=== PATIENT | male | born 1970 | race Caucasian/White ===

== ENCOUNTER 2017-03-24 01:53 | Inpatient (IN) ==
[2017-03-24] MEDS ORDERED: ASPIRIN PO STA (02:00)
[2017-03-24] MEDS ORDERED: MORPHINE IV ONE (02:27)
[2017-03-24] MEDS ORDERED: ZOFRAN IV ONE (02:27)
[2017-03-24] MEDS ORDERED: LABETALOL IV ONE (02:28)
[2017-03-24 03:01] LABS: BASO% 0.3 % (0.0-0.8); EOS# 0.19 X1000 (0.0-0.7); EOS% 1.7 % (0.0-10.0); HEMATOCRIT 40.5 % (42.0-52.0); HEMOGLOBIN 12.5 g/dL (14.0-18.0); IMM GRAN# 0.02 X1000 (0.0-0.04); IMM GRAN% 0.2 % (0.0-0.5); LYMPH# 1.94 X1000 (1.2-3.4); MANUAL DIFF NEEDED? NO; MCH 22.6 PG (27-31); MCHC 30.9 g/dL (33-37); MCV 73.1 FL (81-99); MONO# 0.78 X1000 (0.11-0.59); MONO% 6.8 % (1.7-9.3); MPV 9.5 FL (7.4-10.4); PLT 360 X1000 (130-400); RBC 5.54 XMIL (4.7-6.1)
[2017-03-24 03:06] LABS: AGAP 15; ALBUMIN 4.4 g/dL (3.5-5.0); ALKALINE PHOSPHATASE 109 U/L (32-122); BUN 12 mg/dL (8-22); CALCIUM 8.8 mg/dL (8.8-10.2); CHLORIDE 98 mmol/L (98-107); COSMO 287; GOT 24 U/L (10-34); GPT 31 U/L (10-44); MAGNESIUM 1.9 mg/dL (1.5-2.7); SODIUM 137 mmol/L (136-145); TCO2 24 mmol/L (25-35); TOTAL BILIRUBIN 0.61 mg/dL (0.20-1.00)
[2017-03-24 03:09] LABS: CK PROFILE 317 U/L (24-204)
[2017-03-24 03:24] LABS: INR 1.02; PROTIME 10.7 Seconds (9.2-11.7); PTT 25.8 Seconds (22.0-36.0)
[2017-03-24 03:51] LABS: CK INDEX 2.7 (0.0-2.5); CK-MB 8.56 ng/mL (0.0-5.0)
[2017-03-24] MEDS ORDERED: LASIX IV ONE (03:57)
[2017-03-24] MEDS ORDERED: NITROGLYCERIN TOP ONE (04:03)
--- NOTE | 2017-03-24 04:09 | PROVIDER DOCUMENTATION ---
This chart was entered by Galilea Menendez Scribe, acting as scribe for Shawn Valadez MD. HPI-Chest Pain - General Stated Complaint: CHEST PAIN/SOB Time Seen by Provider: 03/24/17 02:16 Source: patient Allergies/Adverse Reactions: Patient Allergies Allergy/AdvReac Type Severity Reaction Status Date / Time No Known Allergies Allergy Verified 03/24/17 02:53 Home Medications: Home Medication List Medication Instructions Recorded Confirmed Last Taken Type Metformin [Glucophage] 1,000 mg PO BID 04/08/14 03/24/17 03/24/17 History Aspirin [Aspir-Low] 81 mg PO DAILY 07/16/16 03/24/17 03/24/17 History Atorvastatin Calcium [Lipitor] 20 mg PO QHS 03/24/17 03/24/17 03/24/17 History Canagliflozin [Invokana] 100 mg PO DAILY 03/24/17 03/24/17 03/24/17 History Cyclobenzaprine [Flexeril] 10 mg PO TID PRN 03/24/17 03/24/17 03/24/17 History Glipizide 10 mg PO BID 03/24/17 03/24/17 03/24/17 History Losartan/Hydrochlorothiazide 1 each PO DAILY 03/24/17 03/24/17 03/24/17 History [Losartan-Hctz 100-25 mg Tab] Naproxen/Esomeprazole Mag [Vimovo 1 each PO BID PRN 03/24/17 03/24/17 03/24/[address] 500-20 mg Tablet] - History of Present Illness-CP Nature of Presenting Problem: 46 Y/O M presents to ER with the complain of chest pain/SOB last night. pt states that he was in his bed and suddenly started to have difficulty breathing.pt states that he has neck pain and shoulder pain. pt states that he was feeling wheezing and took aspirin at home and that helped him with his wheezing. Location: reports: central Chest Pain Radiation: reports: neck, shoulders Quality of Pain: reports: pressure Severity in ED: moderate Onset/Duration: last night Timing: still present Context/Activities at Onset: reports: none Associated Symptoms: reports: shortness of breath Aspirin Treatment Today: no aspirin today, provided at home, provided by ED Review of Systems - Adult - REVIEW OF SYSTEMS - ADULT Constitutional: reports: no symptoms reported Eyes: reports: no symptoms reported Ears, Nose, Mouth & Throat: reports: no symptoms reported Cardiovascular: reports: chest pain. denies: irregular heart rate, palpitations Respiratory: reports: shortness of breath, wheezing. denies: cough Gastrointestinal: reports: no symptoms reported Genitourinary: reports: no symptoms reported Musculoskeletal: reports: no symptoms reported Integumentary: reports: no symptoms reported Neurological: reports: no symptoms reported Psychiatric: reports: no symptoms reported Endocrine: reports: no symptoms reported Hematologic/Lymphatic: reports: no symptoms reported Allergic/Immunologic: reports: no symptoms reported All Other Systems: Reviewed and Negative Past History - Adult - PAST MEDICAL HISTORY-ADULT Review of Records: reports: Old Records Reviewed, Nursing Assessment Review Major Childhood Illnesses: reports: denies history Cardiovascular: reports: HTN, hyperlipidemia Respiratory: reports: sleep apnea Gastrointestinal: reports: denies history Genitourinary: reports: denies history Musculoskeletal: reports: denies history Neurological: reports: denies history Psychiatric: reports: denies history Endocrine/Immune: reports: Diabetes Other Conditions: reports: other (hemachromatosis) - PRIOR SURGERIES/PROCEDURES Surgical/Procedure History: reports: appendectomy - IMMUNIZATION STATUS Childhood Immunizations: See Nurse Assessment Flu Vaccine: See Nurse Assessment - FAMILY HISTORY Family History: reviewed, not pertinent - SOCIAL HISTORY Substance Use: alcohol Physical Exam-General - PHYSICAL EXAM-ADULT Initial Vital Signs Reviewed: Yes - CONSTITUTIONAL General Appearance: appears well, alert - EYES Eyes: PERRL/EOMI, pink conjunctivae - HEAD, EARS, NOSE, MOUTH & THROAT HENMT: moist mucous membranes, normal ENT inspection, TMs normal - NECK Neck: non-tender, full range of motion, supple - RESPIRATORY Respiratory: chest non-tender, lungs clear, normal breath sounds - CARDIOVASCULAR Cardiovascular: no edema, no gallop, tachycardia. negative: diastolic murmur, systolic murmur - GASTROINTESTINAL (ABDOMEN) Abdominal Exam: normal bowel sounds, soft, tenderness (RUQ) - MUSCULOSKELETAL Back Exam: normal inspection, no CVA tenderness, no vertebral tenderness Extremity: normal range of motion, non-tender, normal gait, normal inspection - SKIN Integumentary: normal color, normal turgor, warm/dry - NEUROLOGIC Neurologic: grossly normal, no motor/sensory deficits - PSYCHIATRIC Psych/Mental Status: normal mood/affect, normal thought content, normal thought process, oriented x 3 Progress - PLAN OF CARE/RESULTS Progress/Plan/Lab Results: Vital Signs - 8 hr 03/24/17 02:14 Pulse Rate 119 H Respiratory Rate 22 Blood Pressure 167/120 O2 Sat by Pulse Oximetry 85 L Laboratory Results - last 24 hr 03/24/17 03/24/17 03/24/17 02:15 02:15 02:15 WBC 11.39 H RBC 5.54 Hgb 12.5 L Hct 40.5 L MCV 73.1 L MCH 22.6 L MCHC 30.9 L RDW Std Deviation 16.0 H Plt Count 360 MPV 9.5 Immature Gran % (Auto) 0.2 Neut % (Auto) 74.0 Lymph % (Auto) 17.0 L [place] % (Auto) 6.8 Eos % (Auto) 1.7 Baso % (Auto) 0.3 Immature Gran # (Auto) 0.02 Neut # (Auto) 8.43 H Lymph # (Auto) 1.94 [place] # (Auto) 0.78 H Eos # (Auto) 0.19 Baso # (Auto) 0.03 PT INR PTT (Actin FS) D-Dimer 1.85 H Sodium 137 Potassium 4.0 Chloride 98 Carbon Dioxide 24 L Anion Gap 15 BUN 12 Creatinine 1.1 Estimated GFR/1.73 m2 > 60 BUN/Creatinine Ratio 11 Glucose 337 H Calculated Osmolality 287 Calcium 8.8 Magnesium 1.9 Total Bilirubin 0.61 AST 24 ALT 31 Alkaline Phosphatase 109 Creatine Kinase 317 H Creatine Kinase Index 2.7 H CK-MB (CK-2) 8.56 H Troponin T Qln-A-Valkcdbojts Pept Total Protein 7.0 Albumin 4.4 Globulin 2.6 Albumin/Globulin Ratio 1.7 Lipase 03/24/17 03/24/17 03/24/17 02:15 02:15 02:15 WBC RBC Hgb Hct MCV MCH MCHC RDW Std Deviation Plt Count MPV Immature Gran % (Auto) Neut % (Auto) Lymph % (Auto) [place] % (Auto) Eos % (Auto) Baso % (Auto) Immature Gran # (Auto) Neut # (Auto) Lymph # (Auto) [place] # (Auto) Eos # (Auto) Baso # (Auto) PT 10.7 INR 1.02 PTT (Actin FS) 25.8 D-Dimer Sodium Potassium Chloride Carbon Dioxide Anion Gap BUN Creatinine Estimated GFR/1.73 m2 BUN/Creatinine Ratio Glucose Calculated Osmolality Calcium Magnesium Total Bilirubin AST ALT Alkaline Phosphatase Creatine Kinase Creatine Kinase Index CK-MB (CK-2) Troponin T 0.011 Lef-U-Wtbmvnaectp Pept 1674 H Total Protein Albumin Globulin Albumin/Globulin Ratio Lipase 03/24/17 02:15 WBC RBC Hgb Hct MCV MCH MCHC RDW Std Deviation Plt Count MPV Immature Gran % (Auto) Neut % (Auto) Lymph % (Auto) [place] % (Auto) Eos % (Auto) Baso % (Auto) Immature Gran # (Auto) Neut # (Auto) Lymph # (Auto) [place] # (Auto) Eos # (Auto) Baso # (Auto) PT INR PTT (Actin FS) D-Dimer Sodium Potassium Chloride Carbon Dioxide Anion Gap BUN Creatinine Estimated GFR/1.73 m2 BUN/Creatinine Ratio Glucose Calculated Osmolality Calcium Magnesium Total Bilirubin AST ALT Alkaline Phosphatase Creatine Kinase Creatine Kinase Index CK-MB (CK-2) Troponin T Mup-F-Qvypqultdqq Pept Total Protein Albumin Globulin Albumin/Globulin Ratio Lipase 10 L Orders Category Date Time Status Cardiac Monitoring DIRECTED Care 03/24/17 02:00 Active Oxygen Therapy- ED Nursing DIRECTED Care 03/24/17 02:00 Active Saline Loc NOW Care 03/24/17 02:00 Active CHEST-2 VIEWS [RAD] Stat Exams 03/24/17 02:[address] ANGIOGRM/PULMONARY ARTERIES [CT] Stat Exams 03/24/17 03:13 Taken CBC WITH ELECTRONIC DIFF [HEME] Stat Lab 03/24/17 02:15 Completed CK PROFILE [SP CHEM] Stat Lab 03/24/17 02:15 Completed COMPREHENSIVE METABOLIC PANEL [CHEM] Stat Lab 03/24/17 02:15 Completed D-DIMER [CHEM] Stat Lab 03/24/17 02:15 Completed LIPASE [CHEM] Stat Lab 03/24/17 02:15 Completed MAGNESIUM [CHEM] Stat Lab 03/24/17 02:15 Completed PRO B-NATRIURETIC PEPTIDE Stat Lab 03/24/17 02:15 Completed PROTIME WITH INR [COAG] Stat Lab 03/24/17 02:15 Completed PTT [COAG] Stat Lab 03/24/17 02:15 Completed TROPONIN T Stat Lab 03/24/17 02:15 Completed Aspirin Med 03/24/17 02:00 Discontinued 325 mg PO STAT STA Furosemide [Lasix] Med 03/24/17 03:57 Discontinued 40 mg IV NOW ONE Labetalol Med 03/24/17 02:28 Discontinued 100 mg IV NOW ONE Morphine Med 03/24/17 02:27 Discontinued 4 mg IV NOW ONE Nitroglycerin Med 03/24/17 04:03 Discontinued 1 inch TOP NOW ONE Ondansetron [Zofran] Med 03/24/17 02:27 Discontinued 4 mg IV NOW ONE EKG [EKG] Stat Ther 03/24/17 02:00 Ordered Result Diagrams: 03/24/17 02:15 03/24/17 02:15 - EKG 1 Time of EKG reading by physician:: 01:54 EKG Read and Signed by:: Shawn Valadez EKG Interpretation (*Must complete 3 of following elements*): Abnormal Rate: 118 Rhythm: sinus tachycardia woth occasional premature ventricular complexes Comments: abnormal ECG - XRAY 1 XRAY: Bilateral XRAY Study: Chest Impression: Abnormal XRAY Interpretation: cardiolmegaly by Jenni - CT/MRI 1 CT Study: Angiogram Impression: Abnormal (No PE, pulm. edema w/effusions) Departure - Departure Date of Disposition Decision: 03/24/17 Time of Disposition Decision: 04:08 DIAGNOSIS: Pulmonary edema cardiac cause Disposition: ADMITTED INPATIENT 09 Certified Medical Emergency: Emergent Condition: Fair Referrals and Follow-Ups: None,PCP [Primary Care Provider] - - Critical Care Note This patient required my direct & personal management of CC.: No Attestation - Physician/ ALEXIS Attestation Patient care was provided by Advanced Practice Provider:: No The physician spent face to face time with patient:: Yes Advanced Practice Provider documentation review:: Supervising physician onsite and consulted in the evaluation and care of this patient. The physician did have a face to face encounter with the patient. This chart was documented by the indicated scribe, (Galilea Menendez Scribe) and accurately reflects the services I performed and decisions made by me, Shawn Valadez MD, as attested by the provider's signature.
--- NOTE | 2017-03-24 05:32 | EKG Report ---
Test Performed on : 03/24/2017 01:54:28 AM Test Reason : Chest Pain Blood Pressure : / mmHG Vent. Rate : 118 BPM Atrial Rate : 118 BPM P-R Int : 154 ms QRS Dur : 084 ms QT Int : 334 ms P-R-T Axes : 060 077 062 degrees QTc Int : 468 ms Sinus tachycardia. with occasional premature ventricular complexes. Nonspecific T wave abnormality Abnormal ECG When compared with ECG of 09-JUL-2016 12:10, Nonspecific T wave abnormality, improved in Inferior leads Nonspecific T wave abnormality has replaced inverted T waves in Lateral leads Unconfirmed Result
[2017-03-24] MEDS ORDERED: LOVENOX SUBQ SCH (06:18)
[2017-03-24] MEDS ORDERED: ZOFRAN IV PRN (06:18)
[2017-03-24] MEDS: HUMALOG SUBQ SCH ×4 (06:57→22:10)
--- NOTE | 2017-03-24 07:26 | Diag Imaging Result Doc PS360 ---
EXAM: CHEST-2 VIEWS HISTORY: CP TECHNIQUE: AP upright sitting and lateral COMMENT: There is interstitial pulmonary edema which was not present on 07/18/2016. The heart size is at the upper limits of normal. IMPRESSION: Pulmonary edema. Electronically signed by John Monte 03/24/2017 7:24 AM
--- NOTE | 2017-03-24 07:31 | Diag Imaging Result Doc PS360 ---
CT ANGIOGRAM/PULMONARY ARTERIES - 03/24/2017 INDICATION: sob, hypoxia TECHNIQUE: Axial CT images were obtained after administering intravenous contrast. Coronal MIP images were generated. A CT dose reduction protocol was used. COMPARISON: 10/20/2014 FINDINGS: There is no pulmonary embolism. There is cardiomegaly. No mass or adenopathy. There are trace pleural effusions. There is mild interstitial infiltrate diffusely and bilaterally. There is also rather severe intralobular septal thickening. There are moderate degenerative changes of the spine. No acute or suspicious bony lesion. IMPRESSION: 1. Negative for pulmonary embolism. 2. Cardiomegaly, pulmonary edema, pleural effusions. Electronically signed by Musa Fay 03/24/2017 7:29 AM
[2017-03-24 07:45] LABS: HEMOGLOBIN A1C 10.6 % (4.8-6.0)
--- NOTE | 2017-03-24 08:00 | HISTORY AND PHYSICAL ---
PRIMARY CARE PROVIDER: [facility]. CHIEF COMPLAINT: Chest pain, shortness of breath. HISTORY OF PRESENT ILLNESS: A 46-year-old male with a past medical history of hyperlipidemia, hypertension, diabetes mellitus type 2, obstructive sleep apnea , PUD, diverticulitis and hemochromatosis, comes into the emergency room after starting to have shortness of breath and chest pain around 10:30 last night. He stated that he could not lay flat. This a new occurrence for the patient. Per the , he felt as if he were smothering. He did take some aspirin at home. On arrival to the emergency room, a chest x-ray, and labs were obtained. Chest x-ray showed cardiomegaly with increased pulmonary vascular markings. Laboratory data showed an elevated D-dimer at 1.85, CK of 317, a CK index of 2.7, and a CK-MB of 8.56. Troponin was 0.011, proBNP 1674. CT angio excluded pulmonary embolism but did show pulmonary edema with effusions. He will be admitted to the medical floor with Cardiology consultation. PAST MEDICAL HISTORY: See HPI. PREVIOUS SURGICAL HISTORY: Nasal surgery and laparoscopic appendectomy [place] [address] Rouse. ALLERGIES: No known drug allergies. FAMILY HISTORY: Diabetes, coronary artery disease in mother. Congestive heart failure in father and grandmother. Paternal grandmother from congestive heart failure. SOCIAL HISTORY: Works as a peña. Rarely has alcohol, maybe 1 drink every 4 months. No tobacco or illicit drugs. HOME MEDICATIONS: 1. Metformin 1000 mg p.o. b.i.d. 2. Aspirin 81 mg p.o. daily. 3. Lipitor 20 mg p.o. at bedtime. 4. Vimovo 500/20 one p.o. b.i.d. p.r.n. 5. Flexeril 10 mg p.o. t.i.d. p.r.n. 6. Glipizide 10 mg p.o. b.i.d. 7. Invokana 100 mg p.o. daily. 8. Losartan/hydrochlorothiazide 100/25 one p.o. daily. REVIEW OF SYSTEMS: Fourteen point review of systems conducted with the patient. Pertinent positives listed above in the HPI. All other systems reviewed and found to be negative. PHYSICAL EXAMINATION: VITAL SIGNS: Pulse 91, respirations 14, blood pressure 127/78, oxygen saturation 98% on room air, was 85% on room air on arrival before receiving Lasix. GENERAL: Pleasant 46-year-old male lying in the ER stretcher. Answers all questions appropriately. at bedside. Patient in no acute distress. HEENT: Head is atraumatic, normocephalic. Pupils equal, round, reactive to light. Extraocular eye movement intact. Sclerae are anicteric. Conjunctivae are pink. Oral mucosa is moist. NECK: Supple. No JVD. No thyromegaly. Trachea is midline. No cervical lymphadenopathy. CARDIAC: S1-S2 appreciated. No murmurs, gallops, rubs. Regular rhythm. LUNGS: Bibasilar crepitations noted. No rhonchi, no rales. Symmetrical rise and fall respirations. ABDOMEN: Protuberant. Soft, nondistended, nontender. Decreased bowel sounds in all 4 quadrants. No pulsatile mass. No organomegaly. EXTREMITIES: No clubbing, cyanosis. Trace edema bilateral lower extremities. Two plus pedal pulses bilaterally. SKIN: Warm, dry and intact. Multiple calluses or corns noted on bilateral feet. NEUROLOGICAL: Alert and oriented x3. Cranial nerves 2-12 grossly intact. DIAGNOSTIC DATA: Chest x-ray shows increased pulmonary vascular markings and cardiomegaly. CT angio excluded pulmonary embolism but showed bilateral effusions with pulmonary edema. LABORATORY DATA: WBC 11.39, hemoglobin 12.5, hematocrit 40.5, platelet count 360,000. Coagulation studies within normal limits. D-dimer 1.85. Sodium 137, potassium 4, chloride 98, carbon dioxide 24, BUN 12, creatinine 1.1, glucose 337, CK 317, CK index 2.7, CK -MB 8.56. Troponin 0.01, proBNP 1674. ASSESSMENT AND PLAN: 1. Congestive heart failure. The patient's last cardiac workup included an echocardiogram which showed an intact ejection fraction at 55% 2 years ago. Lasix was given which helped his shortness of breath greatly. We will repeat echocardiogram in this morning. Consult Dr. Kennedy. Give Lasix 40 mg IV daily. 2. Chest pain. Trend cardiac enzymes. As noted above, Dr. Kennedy will be consulted. Continue nitroglycerin patch for the time being. A 325 mg aspirin was given in the emergency room. 3. Hypertension. Continue home medications. 4. Hyperlipidemia. Check lipid profile. Continue home medications. 5. Diabetes mellitus type 2 with hyperglycemia. Check a hemoglobin A1c. Stop oral antihyperglycemics and put on sliding scale insulin while in the hospital setting. Further recommendations per patient clinical course. Dictated by LORY King for Paola Go MD Seen,examined and discussed case with LIFE ASSURANCE REPRESENTATIVE. cc: LORY King MD [facility] Jamel Kennedy MD [facility]PSON HOSPITALRodney
[2017-03-24 08:14] LABS: FERRITIN 13 ng/mL (30-400)
[2017-03-24 08:15] LABS: CK INDEX 2.9 (0.0-2.5); CK-MB 7.24 ng/mL (0.0-5.0)
[2017-03-24] MEDS: LASIX IV SCH (09:45)
[2017-03-24] MEDS: HYZAAR 50/12.5 MG PO SCH (09:45)
[2017-03-24] MEDS: ASPIRIN EC PO SCH (09:45)
[2017-03-24 11:51] LABS: HDL 24 mg/dL (35-55); LDL 60 mg/dL; TRIGLYCERIDES 117 mg/dL (39-160); VLDL 23 mg/dL
--- NOTE | 2017-03-24 11:51 | CONSULTATION ---
DATE OF CONSULTATION: 03/24/2017 REASON FOR CONSULTATION: Cardiology was consulted for flash pulmonary edema, chest pain, borderline abnormal cardiac enzymes. HISTORY OF PRESENT ILLNESS: Mr. London London is a 46-year-old gentleman with history of hyperlipidemia, hypertension, diabetes, sleep apnea, diverticulosis, and hemochromatosis with minimal coronary artery disease in the past. He had been doing well. In fact, he had lost weight as well. He did not have any chest pain prior to this episode in the recent past. There was no shortness of breath. Yesterday, he went to bed, suddenly had severe sudden onset of shortness of breath associated with retrosternal chest discomfort. He could not lie flat. The patient also described a smothering feeling. He came to the emergency room. Chest x-ray was done in addition to CT scan which revealed pulmonary edema with effusions. He was given IV Lasix. Since then, he has improved. The symptoms came on suddenly. There is no history of palpitations. There is no history of syncope. REVIEW OF SYSTEMS: A 14-point review of systems was done. GI System: There is no history of nausea, vomiting, diarrhea. There is no history of hematemesis or melena. Central Nervous System: No focal weakness to suggest a CVA or TIA. Genitourinary: There is no dysuria or hematuria. Respiratory: There is no history of cough, hemoptysis, or fevers recently. Genitourinary System: There is no dysuria or hematuria. PAST MEDICAL HISTORY: 1. Diabetes. 2. Obstructive sleep apnea. 3. Status post nasal surgery and laparoscopic appendectomy in 2012. 4. Obesity. 5. Hemochromatosis. 6. Diverticulosis 7. Last cardiac catheterization was in 10/16/2008. LAD mild diffuse disease with 30% stenosis. [place] 50%. Diagonal small vessel free of disease. OM 2 was 40%-50% stenosis. Left main was normal. RCA had mild diffuse nonfocal stenosis. This was on 10/16/2008 at [facility]. SOCIAL HISTORY: The patient does not drink and does not smoke; however, he dips. FAMILY HISTORY: He has strong family history of coronary artery disease. PHYSICAL EXAMINATION: Vital Signs: Blood pressure 127/78. Cardiovascular System: Normal jugular venous pressure. Neck: There is no thyromegaly. No carotid bruit. Heart: First and second heart sounds were heard. There is no S3, S4 or gallop. Respiratory System: Normal air entry. There are no crepitations or rhonchi. Abdomen: Soft, nontender. There was no guarding or rigidity. Bowel sounds were heard. Central nervous system: Alert and was moving all 4 extremities. Extremities: Examination of extremities revealed trace edema. DIAGNOSTIC EXAMINATION: Chest x-ray: Pulmonary vascular markings increased. CT scan was done. He was ruled out for pulmonary embolism. There were bilateral pleural effusions with pulmonary edema. WBC 11.39. Hemoglobin 12.5, hematocrit 40, platelet count of 360,000. Sodium 137, potassium 4.0. BUN 12, creatinine 1.1, glucose 337. CK-MB 8.56, troponin was within normal range. ProBNP 1674. CK index 2.7. ASSESSMENT AND PLAN: 1. Mr. London London is a gentleman with history of sleep apnea, hypertension, diabetes, minimal coronary artery disease in the past. Hemochromatosis comes with complaints of sudden onset shortness of breath and retrosternal chest discomfort. He had flash pulmonary edema. Given his history as well as presentation, I have recommended that he undergo a left heart catheterization to rule out obstructive coronary artery disease. Risks, benefits, alternatives were explained. Patient is willing to undergo the procedure. We will set him up for left heart catheterization. 2. He had flash pulmonary edema with chest discomfort with borderline abnormal cardiac enzymes. Given this, he is on aspirin. We will continue that. We will also put him on Lovenox full dose. 3. Diabetes. Continue with his current medications. 4. We will get an echocardiogram to reassess cardiac and valvular function. 5. As far as heart failure is concerned, Coreg currently. He is euvolemic today. We will continue with the IV Lasix as well. 6. Hyperlipidemia. Continue with Lipitor. 7. Hypertension. He was on losartan. I have not made any changes to his medication. Given his borderline cardiac enzymes, as well as chest discomfort and flash pulmonary edema, we will start him on Toprol-XL as well. Thank you for the consult. We will follow hospital course. cc: Jamel Kennedy MD
[2017-03-24 16:44] LABS: CK INDEX 2.9 (0.0-2.5); CK-MB 6.95 ng/mL (0.0-5.0)
[2017-03-24] MEDS ORDERED: LOVENOX SUBQ ONE (19:00)
[2017-03-24] MEDS ORDERED: LIPITOR PO SCH (21:00)
[2017-03-24 22:20] LABS: CK INDEX 2.7 (0.0-2.5); CK-MB 5.74 ng/mL (0.0-5.0)
--- NOTE | 2017-03-25 04:50 | ECHO REPORT ---
ORDER DATE: 03/24/2017 MEASUREMENTS: Left ventricular end-diastolic diameter 4.1, systolic diameter 3.0. Posterior wall thickness 1.6, septal thickness 1.5, left atrium 3.9, aortic root 4.1. SUMMARY: 1. Technically difficult study due to limited acoustic window quality. 2. Aortic valve is trileaflet and opens adequately on 2-dimensional images. Peak gradient across the aortic valve is less than 10 mmHg. Mitral and tricuspid valves are without gross structural abnormality, while pulmonic valve is not well-demonstrated. There is very mild mitral regurgitation and trace tricuspid regurgitation. The aortic root is mildly enlarged. 3. Normal left ventricular chamber size, with [id number]-vgjsbgsb concentric left hypertrophy suggested. Estimated left ejection fraction appears to be at least 55%. No obvious wall motion abnormality can be appreciated. It appears to be at least 55%. There is severe hypokinesis and akinesis of the apical septum and apex. No other wall motion abnormalities can be appreciated. Left atrium is borderline enlarged. Right atrium and right ventricle are normal size, with normal right ventricular systolic function. 4. No pericardial effusion. 5. Appearance of inferior vena cava suggests mild elevation in central venous pressure. CONCLUSIONS: 1. Technically difficult study. 2. Very mild mitral regurgitation. 3. Rnxc-tq-hvdhsfdd concentric left hypertrophy, with estimated left ejection fraction at least 55%. Severe fxbesbbiomq-[id number] of the apical septum and apex demonstrated. 4. Borderline left atrial enlargement. 5. Mild aortic root enlargement. cc: MD Mio Aguero CRNP
[2017-03-25 05:56] LABS: INR 1.02; PROTIME 10.7 Seconds (9.2-11.7)
[2017-03-25 06:13] LABS: BASO% 0.5 % (0.0-0.8); EOS# 0.28 X1000 (0.0-0.7); EOS% 2.9 % (0.0-10.0); HEMATOCRIT 37.7 % (42.0-52.0); HEMOGLOBIN 11.3 g/dL (14.0-18.0); IMM GRAN# 0.02 X1000 (0.0-0.04); IMM GRAN% 0.2 % (0.0-0.5); LYMPH# 1.86 X1000 (1.2-3.4); LYMPH% 19.6 % (20.5-51.1); MANUAL DIFF NEEDED? NO; MCH 22.1 PG (27-31); MCV 73.6 FL (81-99); MONO# 0.87 X1000 (0.11-0.59); MONO% 9.2 % (1.7-9.3); MPV 9.6 FL (7.4-10.4); NEUT% 67.6 % (42.2-75.2); PLT 322 X1000 (130-400); RBC 5.12 XMIL (4.7-6.1)
[2017-03-25 06:37] LABS: AGAP 16; BUN 15 mg/dL (8-22); CHLORIDE 94 mmol/L (98-107); COSMO 284; POTASSIUM 4.1 mmol/L (3.5-5.1); SODIUM 136 mmol/L (136-145); TCO2 26 mmol/L (25-35)
[2017-03-25] MEDS: HUMALOG SUBQ SCH ×2 (07:04→12:42)
[2017-03-25] MEDS ORDERED: HEPARIN 1000 UNITS/NS 2,000 UNIT/1,000 ML IV.SOLN ONE (08:33)
[2017-03-25] MEDS ORDERED: NITROGLYCERIN ONE (08:38)
[2017-03-25] MEDS ORDERED: LANTUS SUBQ SCH (09:00)
[2017-03-25] MEDS: LASIX IV SCH ×2 (10:37→12:41)
[2017-03-25] MEDS: ASPIRIN EC PO SCH ×2 (10:37→12:41)
[2017-03-25] MEDS: HYZAAR 50/12.5 MG PO SCH (10:38)
[2017-03-25] MEDS: TOPROL XL PO SCH ×2 (10:38→12:41)
[2017-03-25] MEDS ORDERED: VERSED ONE (10:47)
[2017-03-25] MEDS ORDERED: DEMEROL ONE (10:48)
[2017-03-25] MEDS ORDERED: CLAVE TWINSITE 32 IN 11959 ONE (10:48)
[2017-03-25] MEDS ORDERED: NS 1,000 ML ONE (10:48)
[2017-03-25] MEDS ORDERED: CLAVE PUMP SET NO FILTER 12260 ONE (10:48)
[2017-03-25 12:27] VITALS: BP 114/80
[2017-03-25] MEDS ORDERED: NS 1,000 ML IV SCH (13:00)
--- NOTE | 2017-03-25 16:01 | DISCHARGE SUMMARY ---
ADMISSION DATE: 03/24/2017 DISCHARGE DATE: 03/25/2017 DATE OF ADMISSION: 03/24/2017. DATE OF TRANSFER: 03/25/2017. CONSULTATIONS: Jamel Kennedy MD with Cardiology. PERTINENT PROCEDURES: 1. Pulmonary arteriogram was negative for PE, cardiomegaly, pulmonary edema and pleural effusions. 2. Echocardiogram showed EF of 55%. Severe hypokinesis to akinesis of the apical septum to apex demonstrated borderline left atrial enlargement, mild aortic root enlargement. 3. Left heart catheterization performed on 03/25/2017. We do not have the final report back, but they did find 3 vessel disease for which the patient will be transferred to [place]. HOSPITAL COURSE: Briefly, Mr. London is a 46-year-old, gentleman with a history of hyperlipidemia, hypertension, diabetes, sleep apnea, diverticulosis, hemochromatosis with minimal coronary artery disease in the past. He had been doing well. He had lost weight. He had not had any chest pain prior to this episode in the recent past. No noted shortness of breath. However, the day before his admission he went to bed and had severe sudden onset of shortness of breath associated with retrosternal chest discomfort. He was unable to lie flat. He felt like he was being smothered. He reported to the ED. Pulmonary arteriogram revealed pulmonary edema with pleural effusions. He was given IV Lasix in the ED and that did help with his shortness of breath greatly. He was admitted with a Cardiology consultation as well as started on IV Lasix daily. We trended his cardiac enzymes, continued on the nitroglycerin patch as well as full dose of aspirin, antihypertensive as well as his statin. We checked a lipid profile. We stopped his oral antihyperglycemics and placed him on a sliding scale. Dr. Kennedy set him up for a left heart catheterization. He was placed on full dose Lovenox and he started him on Toprol-XL. His left heart catheterization was performed on 03/25. I do not have the final report but it did show 3 vessel disease and he is being transferred to [facility]. DISPOSITION: Patient is being transferred to [facility]. VITAL SIGNS: Temperature 98.3 degrees, heart rate 96, respirations 16, blood pressure is 114/80, O2 is 97% on room air. I have personally performed a face to face diagnostic evaluation on this patient , also I reviewed this patient lab work and, images and vital signs, this patient will be transfer to [facility], he has 3 vessels disease and needs surgery, Dr Peewee Marrufo Dictated by LORY Abebe for Peewee Wilhelm MD cc: Peewee Wilhelm MD [facility]
--- NOTE | 2017-03-25 18:25 | CARDIAC CATH REPORT ---
DATE: 03/25/2017 PROCEDURE: 1. Left heart catheterization. 2. Selective coronary angiogram. 3. Left ventriculogram. 4. Opacification of right femoral artery. 5. Deployment of 6-Mauritanian Angio-Seal device. HISTORY: This is a 46-year-old male presenting with increasing dyspnea, findings consistent with congestive heart failure. He does have previous coronary heart disease treated medically. Because of progressive symptoms, Dr. Kennedy recommended left heart catheterization because of high suspicion of progression of coronary disease. Benefits, risks and complications were discussed. He understood and requested to proceed. DESCRIPTION OF PROCEDURE: The patient came into the [facility] [employer] [facility]. He received 2 doses of Versed 1 mg and 2 doses of Demerol 25 mg for sedation. The right groin was prepped and draped in standard fashion, anesthetized with lidocaine 1%. Thereafter, a 6-Mauritanian sheath was inserted into the right femoral artery by following the modified Seldinger technique. Using 6-Mauritanian 4 left and right Lynette catheters, the left and right coronary arteries were sequentially opacified in multiple projections. Using the right Lynette catheter, the aortic valve was negotiated. Left ventricular pressure was determined. Left ventriculogram was performed in the 60 degree ARABIC projection and 30 degree GALVAN projection by hand injection. At the end of the procedure, the catheter was removed. The sheath was opacified and Angio-Seal device was deployed achieving adequate hemostasis for the right femoral artery arteriotomy. The patient tolerated the procedure well without obvious complications. SUMMARY OF HEMODYNAMIC FINDINGS: Central aortic pressure is 121/87. Left ventricular pressure is 121/28, post LV gram 124/29. Final central aortic pressure 124/84. This indicates left ventricular diastolic dysfunction. Elevated LVEDP. SUMMARY OF ANGIOGRAPHIC FINDINGS: 1. Left main coronary artery: This vessel appears to be anatomically normal. It divides into LAD, ramus intermedius, and circumflex. 2. Left anterior descending coronary artery: This vessel shows 3 small size diagonal branches and then after the origin of the last one it becomes completely occluded. The LAD was totally occluded in its distal third. 3. Circumflex coronary artery: The circumflex coronary artery is a nondominant vessel that becomes completely occluded proximally. One marginal vessel that appears to be the major one fills from collaterals and is visualized late. 4. Right coronary artery: The right coronary artery is a dominant vessel. Proximally it has a 60% stenosis. It has almost a zeng's crook type of takeoff. It gives rise to a small acute marginal branch and then early on it divides in the posterior descending branch which proximally has a diffuse 70% stenosis in a posterolateral vessel which is relatively small in caliber, no more than 2 mm, that goes to the posterolateral wall. This vessel shows mild diffuse disease. I must mention that the diagonal branches of the LAD, all of them are too small for bypass grafting, and they show diffuse disease. The ramus intermedius also shows diffuse disease. LEFT VENTRICULOGRAM: Left ventriculogram in the 60 degree ARABIC projection and 30 degree GALVAN projection reveals enlargement of the left ventricular chamber with significant impairment of the anteroapical segment of the left ventricle. Ejection fraction is estimated roughly at 30%. No mitral regurgitation was noted. OPACIFICATION OF RIGHT FEMORAL ARTERY: The right femoral artery appears to be anatomically normal. No definite lesions noted within that vessel. The Angio-Seal device was deployed successfully. CONCLUSIONS: In summary, this study showed: 1. Severe 3-vessel coronary artery disease. There is total occlusion of the distal LAD after the origin of the third diagonal branch. The diagonal branches of the LAD are diffusely diseased and small. The circumflex artery is completely occluded proximally. A large marginal branch fills late. The right coronary artery also shows significant stenosis in its posterior descending branch and proximally has a 60% stenosis. 2. Enlarged left ventricle with impaired function. Ejection fraction 30%. Anteroapical akinesis. 3. Elevated LVEDP, left ventricular diastolic dysfunction. 4. No mitral regurgitation. 5. No aortic stenosis. 6. Unremarkable right femoral artery with deployment of 6-Mauritanian Angio-Seal device. RECOMMENDATIONS: Based on these findings, the patient will be treated medically at this time. We will get a cardiovascular surgical opinion to discuss whether or not this patient may benefit from bypass grafting to the lateral branch of the circumflex as well as the distal right coronary artery. At this point in time, the patient will be followed in the hospital by Dr. Kennedy and the hospitalist team. cc: Naeem Alvarez MD
--- NOTE | 2017-03-26 06:40 | EKG Report ---
Test Performed on : 03/25/2017 1:00:00 PM Test Reason : post ekg Blood Pressure : / mmHG Vent. Rate : 094 BPM Atrial Rate : 094 BPM P-R Int : 174 ms QRS Dur : 084 ms QT Int : 372 ms P-R-T Axes : 062 067 074 degrees QTc Int : 465 ms Sinus rhythm. with occasional premature ventricular complexes. and fusion complexes Nonspecific T wave abnormality Prolonged QT Abnormal ECG When compared with ECG of 25-MAR-2017 12:58, (Unconfirmed) No significant change was found Confirmed by Ben Monique DO ([id number]) on 03/29/2017 4:13:42 PM
--- NOTE | 2017-03-27 03:46 | DISCHARGE SUMMARY ---
ADMISSION DATE: 03/24/2017 DISCHARGE DATE: 03/25/2017 ADDENDUM REPORT DATE OF ADMISSION: 03/24/2017. DATE OF TRANSFER: 03/25/2017. DISCHARGE DIAGNOSES: 1. Severe 3-vessel disease, total occlusion of the distal LAD, circumflex is completely occluded proximally, RCA shows significant stenosis in the posterior descending branch with 60% stenosis. He was transferred to [facility] for cardiovascular surgical opinion to see if he would benefit from bypass surgery to the lateral branch of the circumflex as well as the distal RCA. 2. Chest pain in the setting of coronary artery disease status post catheterization where he was having severe 3-vessel disease, transferred to [facility] for evaluation of bypass. 3. Hypertension. 4. Hyperlipidemia. 5. Diabetes mellitus type 2 with hyperglycemia. 6. Congestive heart failure exacerbation. Dictated by LORY Abebe for Peewee Wilhelm MD cc: Peewee Wilhelm MD
== END 2017-03-25 15:36 | disposition short-term general hospital (02) ==
LOC: ED 01:53 → SUATTDRO 05:46 → 3N 05:46 → 3S 03-25 11:56
PROVIDERS: ATTEND Internal Medicine

== ENCOUNTER 2018-10-12 12:42 | Inpatient (IN) ==
[2018-10-12] MEDS ORDERED: ZOFRAN IV PRN (14:41)
[2018-10-12] MEDS ORDERED: TYLENOL PO PRN (14:41)
[2018-10-12] MEDS ORDERED: NS 1,000 ML IV SCH (14:45)
--- NOTE | 2018-10-12 15:05 | Diag Imaging Result Doc PS360 ---
CHEST-2 VIEWS - 10/12/2018 INDICATION: r/o pna COMPARISON: 07/06/2017 FINDINGS: The lungs are normally expanded and clear. Heart size and mediastinal contours are normal. No pneumothorax or pleural effusion. There are stable sternotomy wires. IMPRESSION: Negative exam. Electronically signed by Musa Fay 10/12/2018 3:03 PM
--- NOTE | 2018-10-12 15:48 | EKG Report ---
Test Performed on : 10/12/2018 3:39:32 PM Test Reason : admission/preop Blood Pressure : / mmHG Vent. Rate : 078 BPM Atrial Rate : 079 BPM P-R Int : 178 ms QRS Dur : 078 ms QT Int : 402 ms P-R-T Axes : 060 025 120 degrees QTc Int : 458 ms Sinus rhythm. with 2nd degree AV block (Mobitz II). with premature supraventricular complexes. ST & T wave abnormality, consider lateral ischemia Abnormal ECG When compared with ECG of 06-JUL-2017 09:23, Sinus rhythm. is now with 2nd degree AV block (Mobitz II). Unconfirmed Result
[2018-10-12 16:14] LABS: BASO# 0.03 X1000 (0.0-0.2); BASO% 0.4 % (0.0-0.8); EOS# 0.21 X1000 (0.0-0.7); EOS% 2.5 % (0.0-10.0); HEMATOCRIT 44.4 % (42.0-52.0); HEMOGLOBIN 15.1 g/dL (14.0-18.0); IMM GRAN# 0.02 X1000 (0.0-0.04); IMM GRAN% 0.2 % (0.0-0.5); LYMPH# 1.74 X1000 (1.2-3.4); LYMPH% 20.6 % (20.5-51.1); MCH 29.5 PG (27-31); MCV 86.9 FL (81-99); MONO# 0.49 X1000 (0.11-0.59); MONO% 5.8 % (1.7-9.3); MPV 8.8 FL (7.4-10.4); NEUT# 5.96 X1000 (1.4-6.5); NEUT% 70.5 % (42.2-75.2); PLT 243 X1000 (130-400); RBC 5.11 XMIL (4.7-6.1); RDW 12.6 % (11.5-14.5); WBC 8.45 X1000 (4.8-10.8)
[2018-10-12 16:41] LABS: AGAP 10; ALB/GLOB RATIO 1.6; ALKALINE PHOSPHATASE 126 U/L (32-122); BUN 13 mg/dL (8-22); CALCIUM 9.1 mg/dL (8.8-10.2); CHLORIDE 94 mmol/L (98-107); CK PROFILE 84 U/L (24-204); COSMO 283; CREATININE 0.9 mg/dL (0.7-1.2); ESTIMATED GFR > 60; GLUCOSE 364 mg/dL (70-104); GOT 16 U/L (10-34); GPT 25 U/L (10-44); MAGNESIUM 1.8 mg/dL (1.5-2.7); POTASSIUM 4.5 mmol/L (3.5-5.1); SODIUM 134 mmol/L (136-145); TCO2 30 mmol/L (25-35); TOTAL BILIRUBIN 0.43 mg/dL (0.20-1.00); TOTAL PROTEIN 6.5 g/dL (6.3-8.3)
[2018-10-12] MEDS ORDERED: ATIVAN PO ONE (16:58)
--- NOTE | 2018-10-12 17:22 | HISTORY AND PHYSICAL ---
Mr. London is supposed to have debridement and I think a 2nd toe amputation on his left foot. He has had the big toe amputation. He has been having trouble with this foot for about 3 years. 1. He has underlying diabetes mellitus with severe peripheral polyneuropathy. 2. History of coronary artery disease. Had CABG back in [address] Shelton. 3. Diabetes mellitus, type 2. 4. History of sleep apnea. 5. History of peptic ulcer disease. 6. Congestive heart failure, by report. PAST MEDICAL HISTORY: 1. Coronary artery disease. 2. Diabetes mellitus, type 2. 3. Sleep apnea. 4. Peptic ulcer disease. 5. Hyperlipidemia. 6. Hypertension. 7. Diverticulosis. 8. Diabetic neuropathy. PAST SURGICAL HISTORY: 1. CABG [place] [address] Shelton. 2. Nasal surgery. 3. Appendectomy. 4. Left big toe amputation per Dr. Rouse. FAMILY HISTORY: Notable for diabetes, coronary artery disease, and congestive heart failure. SOCIAL HISTORY: He is . Does not smoke. No illicit drugs. Only drinks alcohol on occasion. He works as a peña. REVIEW OF SYSTEMS: General: No weight gain or loss. No fever chills. HEENT: No change in visual or hearing acuity. Neck: No complaints of no neck pain or adenopathy. Cardiovascular: No chest pain. No palpitations. Gastrointestinal/Genitourinary: No change in bowels. No gross hematuria or hematochezia. Musculoskeletal/Neurologic: No new focal complaints, other than his left foot as mentioned above. Endocrinologic/Hematologic: No significant history. PHYSICAL EXAMINATION: VITAL SIGNS: Temperature 97.9 degrees, pulse 85, respirations 18, blood pressure 122/85. EYES: Pupils are equal and round. LUNGS: Clear in all lung dunham. CARDIOVASCULAR: Regular rhythm and rate without murmur or S3. Carotid, radial and femoral pulses 2+ and symmetrical. ABDOMEN: Soft, nontender. Positive bowel sounds. EXTREMITIES: No pedal edema. Left foot with about a 2 cm deep plantar ulcer around his 2nd metatarsal. We did look at it and wrapped it and it is a deep ulcer. ASSESSMENT AND PLAN: 1. Diabetic foot ulcer. Plan is for debridement and possible 2nd toe amputation it is my understanding tomorrow. We will put him on some normal saline. We will run it at 45 mL an hour. 2. History of coronary artery disease. Aware. No sign of active ischemia. 3. He has at least on listing a history of congestive heart failure. He had an echocardiogram done in March 2017, and at that time he had a normal ejection fraction, mild to moderate concentric left hypertrophy, so I am assuming this is referring to diastolic dysfunction when they talk about congestive heart failure. He did have a little left atrial enlargement. 4. Hypertension. Blood pressure appears under good control. 5. Hypercholesterolemia. We will put him on pattern sugars and sliding scale. We will check his T4, TSH, B12, and folate in the morning. RADIOLOGICAL DATA: Review of his chest x-ray negative and no sign of infiltrates. ALLERGIES: He has no known drug allergies. cc: Sourav Marcus MD
[2018-10-12 17:56] LABS: URINE SOURCE CLEAN CATCH
[2018-10-12] MEDS: HUMALOG SUBQ SCH ×2 (18:08→20:29)
[2018-10-12] MEDS: NS 1,000 ML IV SCH (18:09)
[2018-10-12] MEDS ORDERED: VANCOMYCIN IV PER PHARMACY MISC SCH (18:15)
[2018-10-12 18:23] LABS: BILIRUBIN URINE NEGATIVE (NEGATIVE); BLOOD URINE NEGATIVE (NEGATIVE); COLOR YELLOW; GLUCOSE URINE >1000 mg/dL (NEGATIVE); KETONE URINE NEGATIVE (NEGATIVE); LEUKOCYTES URINE NEGATIVE (NEGATIVE); NITRITE URINE NEGATIVE (NEGATIVE); PH URINE 6.5; PROTEIN URINE NEGATIVE (NEGATIVE); SP GRAVITY URINE 1.028; TURBIDITY URINE CLEAR (CLEAR); UROBILINOGEN URINE NORMAL (NORMAL)
[2018-10-12 18:29] LABS: UR EPITHELIAL CELLS <10 /HPF (<10); URINE BACTERIA NEGATIVE /HPF; URINE RBC <10 /HPF (<10); URINE WBC <10 /HPF (<10)
[2018-10-12] MEDS ORDERED: VANCOMYCIN 2,500 MG in NS 500 ML IV ONE (20:00)
[2018-10-12] MEDS: MAXIPIME 2 GM in NS 100 ML IV SCH (20:12)
[2018-10-12] MEDS: PERCOCET-10 PO PRN (20:28)
--- NOTE | 2018-10-12 20:53 | INFECTIOUS DISEASE CONSULT REP ---
DATE: 10/12/2018 CONCLUSION: The patient has an infected left foot. He is scheduled to undergo surgery performed tomorrow by Dr. Bose. The patient has developed diarrhea since he has been put on antibiotics. I think it is possible he may have Clostridium difficile diarrhea. RECOMMENDATIONS: Pending culture results I have started the patient on a combination of vancomycin and cefepime. The patient had a plantar ulcer and I took a culture from the ulcerated area and have sent it to the microbiology lab. I am going to send patient's stool for Clostridium difficile toxin and antigen. DISCUSSION: The patient tells me that for approximately 3 weeks, he has a left foot plantar ulcer. His second toe also has become swollen. He has taken some antibiotics as an outpatient including clindamycin, Septra and doxycycline. He said that since he has been on the antibiotics he has had diarrhea. The patient's lab work thus far shows a CBC with a white count of 8450, hemoglobin 15.1 and platelet count 243,000. Creatinine is 0.9. GFR is greater than 60. Alkaline phosphatase is 126. Chest x-ray shows clear lung dunham. REVIEW OF SYSTEMS: Head eyes, ears, nose and throat: Patient's hearing and vision are normal. Neck: No stiffness. Respiratory: No cough or shortness of breath. Cardiac: No chest pain or palpitations. GI: See above regarding diarrhea. Genitourinary: No dysuria or flank pain. Bones, joints, muscles: See present illness. Neurologic: No seizures. No loss of motor or sensory function. Integument: No rash. PREVIOUS HOSPITALIZATIONS AND OPERATIONS: Patient has had amputation of the left great toe. He has had an appendectomy and coronary artery bypass grafting. He has previously had surgery for a scrotal abscess. He has also had nasal surgery. MEDICAL DISEASES: Positive for diabetes mellitus, hypertension, hyperlipidemia, coronary artery disease, hemochromatosis, upper GI ulcers and colon polyps. The patient also has diverticulosis. INFECTIOUS DISEASE HISTORY: Positive for scrotal abscess. Negative for pneumonia and UTI. FAMILY HISTORY: Positive for diabetes mellitus, hypertension, myocardial infarction, stroke, and cancer. SOCIAL HISTORY: [place] . He does not have any pets at home. He has no known drug allergies. He works on a farm. HOME MEDICATIONS: Include Augmentin, aspirin, Lipitor, Coreg, clindamycin, hydralazine, hydrocodone, insulin, lisinopril, penicillin, MiraLAX and Septra. PHYSICAL EXAMINATION: Vital Signs: Temperature is 97.9 degrees, pulse 85, respirations 18, blood pressure 122/85. Patient weighs 226 pounds. General: This is an obese, middle-aged male. He is in no acute distress. Head/eyes/ears/nose/throat: He can hear my spoken words and see near objects. He does not have any white patches on his tongue. There is no drainage from the nose or ears. Neck: No meningismus. Lungs: Clear to auscultation. Cardiovascular: Regular heart rate. Abdomen: Soft and nontender. Extremities: The patient's left foot has a plantar ulcer that has a seropurulent drainage. There is no odor. The patient's second toe on the left foot is swollen. Neurologic: The patient is alert. He can move his extremities. There is no tremor. His sensation is intact to touch. His memory as regarding his medical history is intact. Integument: No rash. Thank you for the consult. cc: Marco A Lindsey MD
--- NOTE | 2018-10-12 21:50 | PROGRESS NOTE ---
DATE: 10/12/2018 SUBJECTIVE: This is a patient that I saw at the [facility] that we ended up admitting under the hospitalists for deep diabetic foot infection and wound that is nonhealing that is probing to bone and needs debridement. His H and P was done in the Wound Center. He is diabetic. He has other medical problems that the hospitalist will attend to OBJECTIVE: Today he is afebrile. He is in no distress. He has minimal signs of infection in the foot, but he has a large deep wound that probes directly to the second metatarsal and second metatarsophalangeal joint on the bottom of his foot. ASSESSMENT AND PLAN: Nonhealing deep and infected wound that probes straight to bone and joint, which needs debridement. We had a long discussion with Mr. Bucio and his about what we are going to do, which is going to be debridement of the infected tissue and bone. We are also going to amputate his second toe since it is not in an anatomic position at this point, and it is more of a hindrance than help and is leading to retrograde pressure on the metatarsal head so he is going to come out of this with an amputation of his second toe and debridement with partial wound closure with packing. Dr. Lindsey is going to do the infectious disease. He apparently took a swab culture today of the wound. I had taken some cultures as an outpatient, and the most definitive cultures we will get in the operating room tomorrow, so he is going to be n.p.oReynaldo rodríguez, and we will take him to the operating room tomorrow. cc: Juan Manuel Bose DPM
[2018-10-13] MEDS: PERCOCET-10 PO PRN ×3 (02:34→20:08)
[2018-10-13] MEDS: HUMALOG SUBQ SCH ×4 (06:51→20:16)
[2018-10-13 07:09] LABS: BASO# 0.03 X1000 (0.0-0.2); BASO% 0.4 % (0.0-0.8); EOS# 0.26 X1000 (0.0-0.7); EOS% 3.9 % (0.0-10.0); HEMOGLOBIN 14.7 g/dL (14.0-18.0); IMM GRAN# 0.02 X1000 (0.0-0.04); IMM GRAN% 0.3 % (0.0-0.5); LYMPH# 1.71 X1000 (1.2-3.4); LYMPH% 25.4 % (20.5-51.1); MCH 29.1 PG (27-31); MCHC 32.7 g/dL (33-37); MCV 88.9 FL (81-99); MONO# 0.45 X1000 (0.11-0.59); MONO% 6.7 % (1.7-9.3); MPV 8.7 FL (7.4-10.4); NEUT# 4.26 X1000 (1.4-6.5); NEUT% 63.3 % (42.2-75.2); PLT 213 X1000 (130-400); RBC 5.06 XMIL (4.7-6.1); RDW 12.9 % (11.5-14.5); WBC 6.73 X1000 (4.8-10.8)
[2018-10-13 07:31] LABS: AGAP 10; ALB/GLOB RATIO 1.3; ALBUMIN 3.6 g/dL (3.5-5.0); ALKALINE PHOSPHATASE 100 U/L (32-122); BUN 11 mg/dL (8-22); CALCIUM 8.4 mg/dL (8.8-10.2); CHLORIDE 97 mmol/L (98-107); COSMO 282; CREATININE 0.8 mg/dL (0.7-1.2); ESTIMATED GFR > 60; GLUCOSE 265 mg/dL (70-104); GOT 18 U/L (10-34); GPT 25 U/L (10-44); MAGNESIUM 1.7 mg/dL (1.5-2.7); POTASSIUM 4.5 mmol/L (3.5-5.1); SODIUM 137 mmol/L (136-145); TCO2 30 mmol/L (25-35); TOTAL PROTEIN 6.3 g/dL (6.3-8.3)
[2018-10-13] MEDS: MAXIPIME 2 GM in NS 100 ML IV SCH ×2 (07:44→20:11)
[2018-10-13 07:47] LABS: FREE T4 1.18 ng/dL (0.93-1.70)
[2018-10-13 07:53] LABS: TSH 5.69 uIUmL (0.27-4.20)
[2018-10-13 07:56] LABS: INR 1.06; PROTIME 14.6 Seconds (11.0-16.0)
[2018-10-13 08:06] LABS: PTT 31.1 Seconds (22.3-41.8)
[2018-10-13] MEDS ORDERED: MIRALAX PO PRN (09:25)
[2018-10-13] MEDS: NS 1,000 ML IV SCH (10:59)
[2018-10-13] MEDS ORDERED: MARCAINE 0.25% ONE (11:49)
[2018-10-13] MEDS ORDERED: XYLOCAINE 1% ONE (11:49)
[2018-10-13] MEDS ORDERED: NEOSPORIN G.U. IRRIGANT ONE ×3 (11:49→12:24)
[2018-10-13] MEDS ORDERED: FENTANYL ONE (11:57)
[2018-10-13] MEDS ORDERED: DIPRIVAN 1% ONE (12:04)
[2018-10-13] MEDS ORDERED: QUELICIN (DOSE) ONE ×2 (12:07→12:45)
[2018-10-13] MEDS ORDERED: XYLOCAINE-MPF 2% ONE (12:07)
[2018-10-13] MEDS ORDERED: EPHEDRINE ONE (12:59)
[2018-10-13] MEDS ORDERED: ZOFRAN ONE (13:03)
[2018-10-13] MEDS ORDERED: HUMULIN R SUBQ ONE (13:45)
[2018-10-13] MEDS ORDERED: VANCOMYCIN 2 GM in NS 500 ML IV SCH (14:00)
--- NOTE | 2018-10-13 14:28 | OPERATIVE NOTE ---
PROCEDURE DATE: 10/13/2018 PREOPERATIVE DIAGNOSIS: Nonhealing and infected diabetic wound, left foot. POSTOPERATIVE DIAGNOSIS: Nonhealing and infected diabetic wound, left foot. PROCEDURE: Debridement of infected tissue and bone left foot with 2nd toe amputation and resection of the distal 2nd metatarsal head with partial wound closure SURGEON: Juan Manuel Bose DPM ANESTHESIA: General. HEMOSTASIS: Thigh tourniquet 350 mmHg. DESCRIPTION OF PROCEDURE: Patient was brought to the operating room and placed on the table in supine position. General anesthesia was then induced. We then prepped and draped the patient in the usual aseptic manner. The procedure was begun by examining the left foot and raising the thigh tourniquet to 350 mmHg. We then used basically a fishmouth incision or 2 curvilinear incisions going from dorsal to plantar to basically remove the 2nd toe and this incision was deepened down to the level of the periosteum and the capsule of the 2nd metatarsal phalangeal joint which was disarticulated and the entire portion of the 2nd toe with the conjoined underlying soft tissue and skin was sent as specimen including the original ulcer. It was noted at this time that there was no deep pus pockets or any significant necrosis or obvious deep infection in the foot. It was noted, however, that the 2nd metatarsal head already showed changes of osteomyelitis and that it was darkened and blackish. We resected the head of the 2nd metatarsal in a beveled position and sent that as specimen with the original other tissue as infected tissue and bone. We also obtained deep soft tissue cultures in this area as well as deep bone cultures of the 2nd metatarsal head. We then took a second sliver of bone of the metatarsal shaft, which was presumed noninfected bone and sent that as a second separate specimen in the hopes that they will find that there was no active infection in that bone, which surgically appeared good and healthy. The remainder of the procedure involved excising the plantar plate and the extensor and flexor tendons and periarticular tissues and any devitalized or nonviable tissue or infected tissue was debrided away. The tourniquet was then released, the capillary refill was immediate. Bleeding was minimal and was ceased using a Bovie. We then used 3 L of normal saline impregnated with solution to irrigate the wound with the Pulsavac machine. We packed the wound with half-inch iodoform gauze and closed the wound partially almost all the way with 2-0 nylon, leaving a small hole on the dorsal aspect of the foot to remove the packing and for dressing changes. He tolerated the procedure and anesthesia well, left the operating room with vital signs stable, CFT intact. We also injected 10 mL of 0.25% Marcaine plain afterwards for anesthesia and he was returned to PACU and will return to the floor, and be followed until discharge. cc: Juan Manuel Bose DPM
[2018-10-13] MEDS: VANCOMYCIN 2 GM in NS 500 ML IV SCH (15:00)
--- NOTE | 2018-10-13 15:31 | INFECTIOUS DISEASE PROGRESS NO ---
DATE: 10/13/2018 PRESENT ILLNESS: The patient is status post debridement of infected tissue and bone in the patient's left foot. The surgery was performed by Dr. Linton. All cultures including of the foot and blood are pending. MEDICATIONS: The patient is receiving vancomycin and cefepime. PHYSICAL EXAMINATION: Vital Signs: Temperature is 97 degrees, pulse 84, respirations 12, blood pressure 149/99. General: This is an obese but otherwise healthy-appearing, middle-aged male. He has just returned from surgery so he is a little lethargic. Head, eyes, ears, nose, and throat: He can hear my spoken words and see near objects. He does not have any white patches on his tongue. Lungs: Clear to auscultation. Cardiovascular: Heart rate is regular. Abdomen: Soft and nontender. Extremities: The patient's left foot has a large dressing around it. The dressing is intact. Neurologic: The patient is arousable. He can move his extremities. There is no tremor. DIAGNOSTIC STUDIES: The patient's CBC today shows a white count of 6730, hemoglobin 14.7, and platelet count 213,000. Creatinine is 0.8, GFR is greater than 60. Urinalysis showed no white blood cells or bacteria. The patient's foot and blood cultures are pending. ASSESSMENT AND PLAN: The patient is status post surgery on his foot. The plan is to continue the vancomycin and cefepime pending final culture results. PATIENT'S COMORBIDITIES: 1. He is a diabetic. 2. He is obese. 3. He has hemochromatosis. cc: Marco A Lindsey MD
[2018-10-13] MEDS ORDERED: CHLORASEPTIC SPRAY MT PRN (16:41)
--- NOTE | 2018-10-13 17:18 | PROGRESS NOTE ---
DATE: 10/13/2018 SUBJECTIVE: Mr. London had surgery this morning. They did amputate the left toe, and he is complaining of a little sore throat. I will let him have some Chloraseptic. OBJECTIVE: Vital signs: Temperature is 98.6 degrees, pulse 102, respirations 18, blood pressure 155/98. HEENT: Pupils are equal and round. Neck: No distended neck veins. Lungs: Clear in all lung dunham. Cardiovascular: Regular rhythm and rate without murmur or S3. Abdomen: Soft. Skin: Warm and dry. Output: Urine output from yesterday 1700 mL. LABORATORY DATA: Blood sugars 309 to 85 in September 1941. ASSESSMENT AND PLAN: 1. Status post debridement of infected tissue and bone in the patient's left foot, debridement amputation of 2nd toe performed by Dr. Linton. Continue vancomycin and cefepime. By report debridement of infected tissue and bone of the left foot with 2nd toe amputation and resection of the distal 2nd metatarsal head with partial wound closure. 2. History of coronary artery bypass grafting (CABG) back in 2017. No sign of active ischemia. Hemodynamics look stable. 3. Diabetes mellitus, type 2. Continue to pattern sugars. 4. Hypertension. 5. Diabetic peripheral neuropathy. 6. Review of his orders. I do not see any change. He is asking for pain medicine a little more often. I will go up on OxyContin to q.4 h. p.r.n. cc: Sourav Marcus MD
[2018-10-13] MEDS: COREG PO SCH (20:09)
[2018-10-13] MEDS: LIPITOR PO SCH (20:09)
[2018-10-14] MEDS: PERCOCET-10 PO PRN ×4 (00:16→17:25)
[2018-10-14] MEDS: NS 1,000 ML IV SCH ×3 (00:16→22:10)
[2018-10-14] MEDS: HUMALOG SUBQ SCH ×4 (06:30→22:08)
[2018-10-14 08:00] LABS: HEMATOCRIT 43.5 % (42.0-52.0); HEMOGLOBIN 14.2 g/dL (14.0-18.0); MCH 29.6 PG (27-31); MCHC 32.6 g/dL (33-37); MCV 90.6 FL (81-99); MPV 8.7 FL (7.4-10.4); RBC 4.8 XMIL (4.7-6.1); WBC 8.27 X1000 (4.8-10.8)
[2018-10-14 08:21] LABS: AGAP 7; BUN 9 mg/dL (8-22); CALCIUM 7.9 mg/dL (8.8-10.2); CHLORIDE 101 mmol/L (98-107); COSMO 280; CREATININE 0.8 mg/dL (0.7-1.2); ESTIMATED GFR > 60; GLUCOSE 207 mg/dL (70-104); POTASSIUM 4.2 mmol/L (3.5-5.1); SODIUM 138 mmol/L (136-145); TCO2 30 mmol/L (25-35)
[2018-10-14] MEDS: MAXIPIME 2 GM in NS 100 ML IV SCH ×2 (09:04→22:01)
[2018-10-14] MEDS: PRINZIDE 20/12.5MG PO SCH (09:06)
[2018-10-14] MEDS: COREG PO SCH ×2 (09:06→22:02)
[2018-10-14] MEDS: ASPIRIN EC PO SCH (09:06)
[2018-10-14] MEDS: BASAGLAR SUBQ SCH (09:06)
[2018-10-14] MEDS: VANCOMYCIN 2 GM in NS 500 ML IV SCH (10:06)
--- NOTE | 2018-10-14 13:26 | PROGRESS NOTE ---
DATE: 10/14/2018 SUBJECTIVE: Mr. London has a boot on his foot and is elevating it. He says he feels better. He is kind of aching all over, and of course his leg hurts him some. OBJECTIVE: He has remained afebrile. Temperature 97.8 degrees, pulse 70, respirations 20, and blood pressure 147/86. Pupils are equal and round. Lungs are clear in all lung dunham. Cardiovascular exam with regular rhythm and rate without murmur or S3. Abdomen is soft. Skin is warm and dry. ASSESSMENT AND PLAN: 1. Status post debridement of infected tissue and bone, left foot amputation of 2nd toe per Dr. Bose. Continue to elevate that foot. Continue present antibiotics. 2. History of coronary artery bypass grafting back in 2018. History of coronary artery disease. No sign of active ischemia. Hemodynamically stable. 3. Diabetes mellitus type 2. Continue following pattern sugars and the sliding scale insulin. 4. Hypertension. 5. Diabetic peripheral neuropathy. REVIEW OF HIS ORDERS: I do not see any change at this time. Blood pressures appear well controlled, and his blood sugars are still a little sporadic, but I suspect they will come down. cc: Sourav Marcus MD
[2018-10-14] MEDS: ATIVAN IV PRN (13:35)
--- NOTE | 2018-10-14 14:10 | INFECTIOUS DISEASE PROGRESS NO ---
DATE: 10/14/2018 PRESENT ILLNESS: The patient is status post debridement of infected tissue and bone in the patient's left foot. All the cultures from the foot are sterile currently. MEDICATIONS: The patient is on a combination of vancomycin and cefepime. PHYSICAL EXAMINATION: Vital Signs: Temperature is 98 degrees, pulse 80, respirations 18, blood pressure is 130/75. General: This is an obese, but otherwise healthy-appearing, middle-aged male. He is in no acute distress. Head, Eyes, Ears, Nose, and Throat: He can hear my spoken words and see near objects. He does not have a white coat on his tongue. Neck: No meningismus. Lungs: Clear to auscultation. Cardiovascular: The patient's heart rate is regular. Occasionally, there is an abnormal beat. Abdomen: Soft and nontender. Extremities: The patient's left foot has a large dressing around it. The dressing is intact. Neurologic: The patient is awake. He can move his extremities. There is no tremor. LAB AND X-RAY: There is no new radiographic study. The CBC shows a white count of 8270, hemoglobin 14.2, and platelet count 185,000. Creatinine is 0.8. GFR is greater than 60. All the cultures of the patient's foot are sterile, as mentioned above. ASSESSMENT AND PLAN: The patient had surgery on his foot. There was soft tissue and bone infection present. My plan is, when Dr. Bose okays it, to send the patient home. I will send him home on home intravenous antibiotics. I have put in a consult for the patient to get a peripherally inserted central catheter. COMORBIDITIES: The patient is a diabetic. He is obese and he has hemochromatosis. cc: Marco A Lindsey MD
[2018-10-14 14:32] LABS: INR 1.05; PROTIME 14.5 Seconds (11.0-16.0)
--- NOTE | 2018-10-14 17:46 | PROGRESS NOTE ---
DATE: 10/14/2018 SUBJECTIVE: He has no problems. He has no pain. OBJECTIVE: Vital signs: No fever. Extremities: The dressing is dry and intact. The packing is intact. Upon removal, the sutures are in place. The wound looks excellent. There are no signs of infection. There is no pus. There is no odor, no swelling. There is no redness. DIAGNOSTIC STUDIES: White cells were normal. Microbiology thus far is showing no growth. ASSESSMENT AND PLAN: One day status post incision and drainage (I D) with removal of 2nd toe and 2nd metatarsal head. Doing very well. It was re-dressed. We pulled the packing out. He is going to continue nonweightbearing, continue on antibiotics, and should be able to go home tomorrow after he gets his port placement. cc: Juan Manuel Bose DPM
[2018-10-14] MEDS: LIPITOR PO SCH (22:02)
[2018-10-15] MEDS: VANCOMYCIN 2 GM in NS 500 ML IV SCH (04:48)
[2018-10-15] MEDS: HUMALOG SUBQ SCH ×3 (06:43→17:10)
[2018-10-15] MEDS: MAXIPIME 2 GM in NS 100 ML IV SCH (09:05)
[2018-10-15] MEDS: PERCOCET-10 PO PRN ×3 (09:06→17:11)
[2018-10-15] MEDS: ATIVAN IV PRN ×3 (09:06→17:11)
[2018-10-15] MEDS: PRINZIDE 20/12.5MG PO SCH (09:07)
[2018-10-15] MEDS: BASAGLAR SUBQ SCH (09:07)
[2018-10-15] MEDS: ASPIRIN EC PO SCH (09:07)
[2018-10-15] MEDS: COREG PO SCH (09:07)
[2018-10-15] MEDS ORDERED: NS 0 ML ONE (09:56)
--- NOTE | 2018-10-15 12:09 | PROGRESS NOTE ---
DATE: 10/15/2018 SUBJECTIVE: He has no new complaints. He is resting comfortably. OBJECTIVE: He is afebrile. Dressing is dry and intact. The incision line looks excellent. The sutures are in place. There are no signs of infection at all. There is no drainage. There is no redness or swelling to the foot, it looks really really good. ASSESSMENT AND PLAN: Two days status post debridement of infected and nonviable tissue and bone with amputation, of the 2nd toe. Every thing looks very good. It was re-dressed today. He is going down to get his PICC line. As far as I am concerned, he can go home today as long as he stays on antibiotics and he is nonweightbearing. I will follow him as an outpatient until his foot is healed. cc: Juan Manuel Bose DPM
--- NOTE | 2018-10-15 13:37 | INFECTIOUS DISEASE PROGRESS NO ---
DATE: 10/15/2018 SUBJECTIVE: The patient is going home today on home IV antibiotics consisting of vancomycin and cefepime. The patient has an appointment to come to my office at 3 weeks and then again at 6 weeks, at which time we will stop the IV antibiotics. cc: Marco A Lindsey MD
--- NOTE | 2018-10-15 14:46 | DISCHARGE SUMMARY ---
ADMISSION DATE: 10/12/2018 DISCHARGE DATE: 10/15/2018 HISTORY: Mr. London was admitted on 10/12/2018. He has no primary care physician, but he is followed by Dr. Bose. He was discharged on 10/15/2018. He had debridement. He came in for debridement of the amputation of the 2nd toe because of soft tissue infection. He has been having trouble with his foot for about 3 years. He has a Past Medical History of underlying diabetes mellitus type 2 with severe peripheral polyneuropathy, history of coronary artery disease and CABG bypass back in [address] Shelton, diabetes mellitus type 2, history of sleep apnea, history of peptic ulcer disease, and congestive heart failure. PAST MEDICAL HISTORY: 1. Coronary artery disease. 2. Diabetes mellitus type 2. 3. Sleep apnea. 4. Peptic ulcer disease. 5. Hyperlipidemia. 6. Hypertension. 7. Diverticulosis. 8. Diabetic neuropathy. PAST SURGICAL HISTORY: 1. CABG bypass [address] Shelton. 2. Nasal surgery. 3. Appendectomy. 4. Left big toe amputation per Dr. Rouse. HOSPITAL COURSE: He was admitted and put on sliding scale. Lab was checked. CBC showed white cell count was 8450, hematocrit 44, and platelet count 243,000. Chemistries and electrolytes looked good. Blood sugars remained fairly well controlled. He underwent surgery per Dr. Bose of debridement of infected tissue on the left foot, 2nd toe amputation and resection of the distal 2nd metatarsal with partial wound closure. Infectious Disease is involved Dr. Lindsey, and he seemed to be doing well. He felt the patient could go home on IV antibiotics consisting of vancomycin and cefepime. This was arranged. We will discharge the patient home on 10/15/2018. DISCHARGE MEDICATIONS: 1. The patient is on Lipitor 40 mg a day. 2. Aspirin 81 mg a day. 3. Coreg 25 mg b.i.d. 4. He will continue his insulin glargine 40 units subcutaneous every morning. 5. Lisinopril/hydrochlorothiazide 20-12.5 one a day. 6. Percocet 10s 1 q.4 hours p.r.n. 7. MiraLAX 17 g p.o. daily p.r.n. 8. Continue his vancomycin. 9. Cefepime 2 g q.12h. 10. Vancomycin 1.5 g q.12h. FOLLOW UP: Dr. Lindsey and Dr. Bose. cc: Sourav Marcus MD
[2018-10-15 16:06] VITALS: BP 172/100
[2018-10-15] MEDS ORDERED: VANCOMYCIN 1.5 GM in NS 250 ML IV SCH (17:00)
== END 2018-10-15 18:52 | disposition home health service (06) | DRG 617 ==
LOC: DIRADM 12:42 → SUATTDRO 12:42 → 3N 14:16
PROVIDERS: ATTEND Emergency Medicine
CPT/HCPCS: 36569; 71020; 71046; 80048; 80053; 80202; 81001; 82550; 82607; 82746; 82948; 83605; 83735; 83880; 84439; 84443; 84484; 85025; 85027; 85610; 85730; 87040; 87070; 87075; 87077; 87186; 88304; 93005; 93010; 94761; 94799; 97116; 97162; 97530; A9270; J0330; J0692; J1815; J2060; J2405; J3010; J3370; J7030; J7040; J7050; S0020; XXXXX